=== PATIENT | male | born 1970 | race Caucasian/White ===

== ENCOUNTER 2020-11-02 04:22 | Inpatient (IN) | payer BC ==
[~2020-11-02] VITALS: Ht 182.9 cm; Wt 134.7 kg
[2020-11-02 04:24] VITALS: BP 140/64
[2020-11-02 05:40] LABS: BILIRUBIN Negative (Negative); BLOOD Negative (Negative); CLARITY Clear (Clear); COLOR Yellow (Yellow); GLUCOSE Negative (Negative); KETONE Negative (Negative); LEUKO ESTERASE Negative (Negative); NITRITE Negative (Negative); PH 5.5 (4.5-8.0)
[2020-11-02 05:42] LABS: BASO % 0.3 % (0.0-1.0); EOS # 0.1 10*3/uL (0.0-0.4); EOS % 0.7 % (1.0-4.0); HEMATOCRIT 51.5 % (42.0-52.0); LYMPH # 0.7 10*3/uL (1.3-4.4); LYMPH % 5.4 % (27.0-41.0); MEAN CELL VOLUME 97.4 fl (80.0-94.0); MEAN CORPUSCULAR HGB 31.9 pg (27.0-31.0); MEAN CORPUSCULAR HGB CONC 32.8 g/dl (33.0-37.0); MEAN PLATELET VOLUME 10.6 fl (9.6-12.3); MONO # 0.6 10*3/uL (0.1-1.0); MONO % 4.8 % (3.0-9.0); NEUT # 10.7 10*3/uL (2.3-7.9); NEUT % 88.5 % (47.0-73.0); PLATELET COUNT AUTOMATED 160 10*3/uL (130-400); RED BLOOD COUNT 5.29 10*6/uL (4.50-5.90); RED CELL DISTRI WIDTH 13.2 % (0-14.5); WHITE BLOOD COUNT 12.1 10*3/uL (4.8-10.8)
[2020-11-02 05:57] LABS: ALKALINE PHOSPHATASE 63 U/L (45-117); BUN 19 mg/dl (7-24); CHLORIDE 103 mmol/L (98-107); CREATININE 1.02 mg/dL (0.70-1.30); POTASSIUM 4.2 mmol/L (3.5-5.1); SGOT/AST 15 IU/L (3-35); SGPT/ALT 27 U/L (12-78); SODIUM 136 mmol/L (136-145); TOTAL PROTEIN 7.5 gm/dL (6.4-8.2)
[2020-11-02 06:03] LABS: WBC 0-2 wbc/hpf (0-5)
[2020-11-02 06:49] VITALS: BP 136/82
[2020-11-02 11:00] VITALS: BP 135/80
[2020-11-02 11:30] VITALS: BP 120/67; BP 135/80
[2020-11-02 16:00] VITALS: BP 127/66
[2020-11-02 20:00] VITALS: BP 134/73
[2020-11-03] VITALS: BP 125/60
[2020-11-03 06:14] LABS: ALKALINE PHOSPHATASE 50 U/L (45-117); BUN 13 mg/dl (7-24); CHLORIDE 106 mmol/L (98-107); CHOLESTEROL 142 mg/dL (<200); FREE T4 1.19 ng/dl (0.76-1.46); LDL CHOLESTEROL 81 mg/dL (9-159); SGOT/AST 11 IU/L (3-35); SGPT/ALT 18 U/L (12-78); SODIUM 138 mmol/L (136-145); TOTAL PROTEIN 6.2 gm/dL (6.4-8.2); TRIGLYCERIDES 63 mg/dl (<150)
[2020-11-03 06:17] LABS: BASO % 0.2 % (0.0-1.0); EOS # 0.1 10*3/uL (0.0-0.4); EOS % 0.8 % (1.0-4.0); HEMATOCRIT 46.5 % (42.0-52.0); LYMPH % 10.1 % (27.0-41.0); MEAN CELL VOLUME 96.7 fl (80.0-94.0); MEAN CORPUSCULAR HGB 31.6 pg (27.0-31.0); MEAN CORPUSCULAR HGB CONC 32.7 g/dl (33.0-37.0); MEAN PLATELET VOLUME 11.2 fl (9.6-12.3); MONO # 0.4 10*3/uL (0.1-1.0); MONO % 4.2 % (3.0-9.0); NEUT # 8.1 10*3/uL (2.3-7.9); NEUT % 84.4 % (47.0-73.0); PLATELET COUNT AUTOMATED 134 10*3/uL (130-400); RED BLOOD COUNT 4.81 10*6/uL (4.50-5.90); WHITE BLOOD COUNT 9.6 10*3/uL (4.8-10.8)
[2020-11-03 07:31] LABS: VITAMIN D, 25-HYDROXY 34.8 ng/mL (30-100)
[2020-11-03 08:00] VITALS: BP 129/77
[2020-11-03 12:00] VITALS: BP 148/76
[2020-11-03 16:00] VITALS: BP 152/78
[2020-11-03 20:00] VITALS: BP 128/64
[2020-11-04] VITALS: BP 119/65
[2020-11-04 08:00] VITALS: BP 127/78
[2020-11-04] MEDS ORDERED: FLAGYL500 MG PO (12:20)
[2020-11-04] MEDS ORDERED: CIPRO500 MG PO (12:20)
== END 2020-11-04 14:30 | disposition home or self-care (01) | DRG 392 ==
LOC: ED 04:22 → EDHOLD 09:37 → 5E 09:37 → EDHOLD 10:21 → 5E 10:51
PROVIDERS: Emergency Medicine; Registered Nurse; ADMIT Emergency Medicine; ATTEND Emergency Medicine
DX: K57.20 Diverticulitis of large intestine with perforation and abscess without bleeding (principal); K57.30 Diverticulosis of large intestine without perforation or abscess without bleeding; D75.89 Other specified diseases of blood and blood-forming organs; R73.9 Hyperglycemia, unspecified; E66.9 Obesity, unspecified; Z82.49 Family history of ischemic heart disease and other diseases of the circulatory system; Z83.3 Family history of diabetes mellitus; Z88.0 Allergy status to penicillin; Z80.8 Family history of malignant neoplasm of other organs or systems

== ENCOUNTER → 2020-12-15 | Day surgery (SDC) | payer BC ==
[~2020-12-15] VITALS: Ht 187.9 cm; Wt 129.3 kg
[~2020-12-15] MED LIST: CIPRO500 MG PO; FLAGYL500 MG PO
[2020-12-15 07:28] VITALS: BP 126/74
[2020-12-15 08:31] VITALS: BP 153/85
[2020-12-15 08:46] VITALS: BP 155/96
[2020-12-15 09:01] VITALS: BP 149/98
== END | disposition home or self-care (01) ==
LOC: SDC 12-11 08:00
PROVIDERS: ATTEND Surgery
DX: Z12.11 Encounter for screening for malignant neoplasm of colon (principal); D12.2 Benign neoplasm of ascending colon; D12.4 Benign neoplasm of descending colon; Z86.010 Personal history of colon polyps; K57.30 Diverticulosis of large intestine without perforation or abscess without bleeding; Z88.0 Allergy status to penicillin

== ENCOUNTER 2021-01-28 09:22 | Emergency (ER) | payer BC ==
[~2021-01-28] VITALS: Ht 187.9 cm; Wt 133.8 kg
[2021-01-28] MEDS ORDERED: CEPHALEXIN500 M1 PO (11:45)
[2021-01-28] MEDS ORDERED: INDOMETHACIN50 MG PO (11:45)
== END 2021-01-28 12:05 | disposition home or self-care (01) ==
LOC: ED 09:22
DX: M10.9 Gout, unspecified (principal); Z88.0 Allergy status to penicillin